=== PATIENT | male | born 1980 | race Caucasian/White ===

== ENCOUNTER 2017-02-22 17:43 | Emergency (ER) | payer MEDICARE, MEDICAID ==
[2017-02-22 17:52] VITALS: BP 165/98
[2017-02-22] MEDS ORDERED: KETOROLAC TROMETHAMINE 60 MG/2 ML VIAL IM ONE ×2 (18:03→18:44)
[2017-02-22] MEDS ORDERED: ORPHENADRINE CITRATE 30 MG/ML VIAL IM ONE (18:04)
--- NOTE | 2017-02-22 18:13 | ERNOTE ---
Upper Extremity HPI - Narrative Date of Service: 02/22/17 - General Extremities Pain Location: shoulder: right Time Seen by Provider: 02/22/17 17:54 Source: patient Exam Limitations: no limitations - Immun/Allergies/Home Medications Immunizations: IMMUNIZATION HX Immunizations Up to Date Yes History of Influenza Vaccine No Allergies/Adverse Reactions: Allergies Allergy/AdvReac Type Severity Reaction Status Date / Time No Known Allergies Allergy Unverified 02/22/17 17:51 Home Medications: HOME MEDICATIONS Cyclobenzaprine HCl [Flexeril] 10 mg PO TID PRN #30 tab 02/22/17 [Last Taken Unknown] Naproxen [Naprosyn] 500 mg PO BID PRN #60 tab 02/22/17 [Last Taken Unknown] - History of Present Illness Narrative: Pt. comes in with c/o R shoulder pain for a week. Pt. denies any injury or similar symptoms previously. Pt. denies any SOB, CP, fever, numbness, tingling , or prehospital treatment. Review of Systems - Review of Systems Constitutional: Present: no symptoms reported. Absent: fever, chills, weakness , fatigue, malaise EYE: Present: no symptoms reported ENT: Present: no symptoms reported Respiratory: Present: no symptoms reported. Absent: shortness of breath, cough , wheezing Cardiology: Present: no symptoms reported. Absent: chest pain, palpitations, edema Gastrointestinal/Abdominal: Present: no symptoms reported. Absent: nausea, vomiting, diarrhea Genitourinary: Present: no symptoms reported. Absent: frequency, decreased urinary output Musculoskeletal: Present: joint pain - R shoulder Skin: Present: no symptoms reported. Absent: rash, change in hair/nails Neurological: Present: no symptoms reported. Absent: headache, dizziness/light- headedness, numbness, tingling All Other Systems: All systems neg except as marked - Patient's Past Medical History Patient History - Medical: No pertinent hx Patient History - Cardiac/Respiratory: No pertinent hx Patient History - Cancer: No Hx of Cancer Patient History - Surgical Procedures: Ear Tubes, T & A Patient History - Other: None - Social History Living Situations: home Abuse History: No History of abuse Psych History: No pertinent hx Smoking Status: Current every day smoker Alcohol Use: none Drug Use: none - Immunizations Immunizations Up to Date: Yes History of Influenza Vaccine: No Physical Exam - Physical Exam General Appearance: Present: wd/wn, alert, no apparent distress Head Exam: Present: normal inspection, no evidence of injury Eye Exam: Normal inspection: bilateral Respiratory: Present: no respiratory distress, normal breath sounds, no accessory muscle use, chest nontender, lungs clear Cardiovascular/Chest: Present: regular rate, rhythm, no murmur, normal peripheral pulses Extremity Exam: Present: decreased range of motion, other - empty can positive Neurological Exam: Present: alert, oriented, normal mood/affect, no motor/ sensory deficits Skin Exam: Present: normal color, warm/dry. Absent: pallor, skin rash ED Progress - Vital Signs Patient's Vital Signs:: I have reviewed the patient's vital signs. Vital Signs: Vital Signs 02/22/17 17:46 Temperature 36.6 C Pulse Rate 101 H Respiratory 12 Rate Blood Pressure 165/98 O2 Sat by Pulse 98 Oximetry - X-Ray X-Ray #1 X-Ray: shoulder Interpretation: Reviewed by me X-ray Comments: no obvious acute osseous abnormality - Progress/Reassessment Chief Complaint: Shoulder Injury/Pain Departure Clinical Impression: Rotator cuff (capsule) sprain Qualifiers: Encounter type: initial encounter Laterality: right Qualified Code(s): S43.421A - Sprain of right rotator cuff capsule, initial encounter - Departure Disposition: Home self-care Condition: Good Instructions: Rotator Cuff Tendinitis Additional Instructions: Please follow up with Dr Carty by calling office for appointment Prescriptions: Cyclobenzaprine HCl [Flexeril] 10 mg PO TID PRN #30 tab PRN Reason: MUSCLE SPASMS Naproxen [Naprosyn] 500 mg PO BID PRN #60 tab PRN Reason: Pain
[2017-02-22] MEDS ORDERED: ORPHENADRINE CITRATE 30 MG/ML VIAL ONE (18:44)
== END 2017-02-22 18:53 | disposition home or self-care (01) ==
LOC: ER 17:43
DX: S43.421A Sprain of right rotator cuff capsule, initial encounter (principal)

== ENCOUNTER 2017-03-08 21:22 | Emergency (ER) | payer MEDICARE, MEDICAID ==
[2017-03-08] MEDS ORDERED: LIDOCAINE 35 APPL TUBE TP ONE (22:06)
[2017-03-08] MEDS ORDERED: BUPIVACAINE HCL 50 ML VIAL IJ ONE (22:06)
[2017-03-08] MEDS ORDERED: PENICILLIN V POTASSIUM 250 MG TABLET PO ONE (22:07)
[2017-03-08] MEDS ORDERED: PENICILLIN V POTASSIUM 250 MG TABLET ONE (22:15)
[2017-03-08] MEDS ORDERED: ACETAMINOPHEN 500 MG TABLET PO ONE (22:19)
[2017-03-08 22:22] VITALS: BP 147/88
--- NOTE | 2017-03-08 22:35 | ERNOTE ---
ENT HPI Date of Service: 03/08/17 Presenting Symptoms: dental pain Time Seen by Provider: 03/08/17 21:35 Source: patient - Immun/Allergies/Home Medications Immunizations: IMMUNIZATION HX Immunizations Up to Date Yes History of Influenza Vaccine Yes Hx Pneumococcal Vaccination No Allergies/Adverse Reactions: Allergies Allergy/AdvReac Type Severity Reaction Status Date / Time No Known Allergies Allergy Unverified 03/08/17 21:31 Home Medications: HOME MEDICATIONS Naproxen [Naprosyn] 500 mg PO BID PRN #20 tablet 03/08/17 [Last Taken Unknown] Penicillin V Potassium 500 mg PO QID PRN #30 tablet 03/08/17 [Last Taken Unknown ] - History of Present Illness Narrative: Two week history of dental pain at tooth number 19 . The pain significantly increased today, but has not had any fevers or chills. He does complain of a strange taste in his mouth that occurs intermittently. Has been taking Motrin without relief of the pain, wherein he took six at 1830 hours. Time (Timing): 22:17 Severity: Present: moderate ENT Location: Present: dental Modifying Factors - Improves: Reports: nothing Modifying Factors - Worsens: Reports: nothing Associated Symptoms - ENT: Denies: fever Review of Systems - Review of Systems Constitutional: Present: no symptoms reported EYE: Present: no symptoms reported ENT: Present: See HPI Respiratory: Present: no symptoms reported Cardiology: Present: no symptoms reported Gastrointestinal/Abdominal: Present: no symptoms reported Genitourinary: Present: no symptoms reported Musculoskeletal: Present: no symptoms reported Skin: Present: no symptoms reported Neurological: Present: no symptoms reported - Patient's Past Medical History Patient History - Medical: No pertinent hx Patient History - Cardiac/Respiratory: No pertinent hx Patient History - Cancer: No Hx of Cancer Patient History - Surgical Procedures: Ear Tubes, T & A Patient History - Other: None - Social History Living Situations: spouse Abuse History: No History of abuse Psych History: No pertinent hx Smoking Status: Current every day smoker Have you smoked in the past 12 months: Yes Do you dip or chew tobacco: No Alcohol Use: none Drug Use: none - Immunizations Immunizations Up to Date: Yes Hx Pneumococcal Vaccination: No History of Influenza Vaccine: Yes Physical Exam - Physical Exam Narrative: obese General Appearance: Present: mild distress Head Exam: Present: normal inspection Eye Exam: Normal inspection: bilateral, PERRL: bilateral Ears, Nose, Throat: Present: other - Tenderness at the gum without fluctuance at tooth 19. Neck: Present: normal inspection Respiratory: Present: no respiratory distress Cardiovascular/Chest: Present: regular rate, rhythm Gastrointestinal/Abdominal: Present: nondistended Back Exam: Present: normal inspection Extremity Exam: Present: normal inspection Neurological Exam: Present: alert, oriented Skin Exam: Present: normal color ED Progress - Vital Signs Patient's Vital Signs:: I have reviewed the patient's vital signs. Vital Signs: Vital Signs 03/08/17 21:26 Temperature 36.6 C Pulse Rate 100 Respiratory 18 Rate Blood Pressure 151/111 O2 Sat by Pulse 97 Oximetry - Progress/Reassessment Chief Complaint: Dental Problem Progress:: Improved Progress Note-Subjective: 03/08/17 22:25 The pain was completely resolved after the dental block using 0.5 % Bupivicaine. Also given one gram of PCN po. Departure Clinical Impression: Pain, dental - Departure Disposition: Home self-care Condition: Fair Instructions: Dental Abscess, [id number] Language: Greek Additional Instructions: If the pain worsens over the next 24 hours return to the ED. Follow up with the dentist on the as scheduled. Referrals: CLINTON FRAGA [Primary Care Provider] - Prescriptions: Naproxen [Naprosyn] 500 mg PO BID PRN #20 tablet PRN Reason: pain Penicillin V Potassium 500 mg PO QID PRN #30 tablet PRN Reason: Pain
== END 2017-03-08 22:30 | disposition home or self-care (01) ==
LOC: ER 21:22
PROC: 3E0T3BZ Introduction of Anesthetic Agent into Peripheral Nerves and Plexi, Percutaneous Approach (ICD-10-PCS; principal; 2017-03-08)
DX: F17.200 Nicotine dependence, unspecified, uncomplicated; K08.89 Other specified disorders of teeth and supporting structures